=== PATIENT | female | born 1985 | race Two or more races ===

== ENCOUNTER 2025-03-28 09:26 | Inpatient (IN) | payer MEDICAID, OTHER ==
[~2025-03-28] VITALS: Ht 162.6 cm; Wt 83.3 kg
--- NOTE | 2025-03-28 10:02 | ED.PDOC ---
History of Present Illness HPI Comments 39-year-old female see the ER with primary care history of chronic headaches and a chief complaint of headache. Patient on having headache associated with facial swelling for a week and a half. Patient went to her PCP where they told her to go to for an MRI. Patient notes on not seeing a neurologist or ever referred to one. Patient states on taking ibuprofen and Tylenol for pain. Denies chills, fever, N/V/D, SOB, CP. No other associated symptoms, modifiers, recent injuries or sick contacts present at this time. 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 History Family History Family History: Reviewed,noncontributory to illness, Unknown Social History Smoker: Non-Smoker Alcohol: Denies ETOH Use Drugs: Denies Drug Use Lives In: Home Constitutional: denies: chills, diaphoresis, fatigue, fever, malaise, sweats, weakness, others EENTM: denies: blurred vision, double vision, ear bleeding, ear discharge, ear drainage, ear pain, ear ringing, eye pain, eye redness, hearing loss, mouth pain, mouth swelling, nasal discharge, nose bleeding, nose congestion, nose p ain, photophobia, tearing, throat pain, throat swelling, voice changes, others Respiratory: denies: cough, hemoptysis, orthopnea, SOB at rest, shortness of breath, SOB with excertion, stridor, wheezing, others Cardiovascular: denies: chest pain, dizzy spells, diaphoresis, Dyspnea on exertion, edema, irregular heart beat, left arm pain, lightheadedness, palpitations, PND, syncope, others Gastrointestinal: denies: abdomen distended, abdominal pain, blood streaked bowels, constipated, diarrhea, dysphagia, difficulty swallowing, hematemesis, melena, nausea, poor appetite, poor fluid intake, rectal bleeding, rectal pain, vomiting, others Genitourinary: denies: abnormal vagina bleeding, burning, dyspareunia, dysuria, flank pain, frequency, hematuria, incontinence, pain, , vagina discharge, urgency, others Neurological: reports: headache, others (Facial swelling); denies: dizziness, fainting, left sided numbness, left sided weakness, numbness, paresthesia, pre- existing deficit, right sided numbness, right sided weakness, seizure, speech problems, tingling, tremors, weakness Musculoskeletal: denies: back pain, gout, joint pain, joint swelling, muscle pain, muscle stiffness, neck pain, others Integumetry: denies: bruises, change in color, change in hair/nails, dryness, laceration, lesions, lumps, rash, wounds, others Allergic/Immunocompromised: denies: Difficulty Healing, Frequent Infections, Hives, Itching, others Hematologic/Lymphatic: denies: anemia, blood clots, easy bleeding, easy bruising, swollen glands, others Endocrine: denies: excessive hunger, excessive sweating, excessive thirst, excessive urination, flushing, intolerance to cold, intolerance to heat, unexplained weight gain, unexplained weight loss, others Psychiatric: denies: anxiety, bipolar disorder, depression, hopeless, panic disorder, schizophrenia, sleepless, suicidal, others All Other Systems: Reviewed and Negative Physical Exam General Appearance: No Apparent Distress, Normal HEENT: Normal ENT Inspection, Pharynx Normal, TMs Normal Neck: Full Range of Motion, Non-Tender, Normal, Normal Inspection Respiratory: Chest Non-Tender, Lungs Clear, No Accessory Muscle Use, No Respiratory Distress, Normal Breath Sounds Cardiovascular: No Edema, No JVD, No Murmur, No Gallop, Normal Peripheral Pulses, Regular Rate/Rhythm Breast Exam: Deferred Gastrointestinal: No Organomegaly, Non Tender, No Pulsatile Mass, Normal Bowel Sounds, Soft Genitalia: Deferred Pelvic: Deferred Rectal: Deferred Extremities: No calf tenderness, Normal capillary refill, Normal inspection, Normal range of motion, Non-tender, No pedal edema Musculoskeletal : Apperance: Normal Neurologic: Alert, stone sawyer II-XII nml as Tested, No Motor Deficits, Normal Affect, Normal Mood, No Sensory Deficits Cerebellar Function: Normal Reflexes: Normal Skin: Dry, Normal Color, Warm Lymphatic: No Adenopathy Was a procedure done? Was a procedure done?: No Differential Dx Considerations may include: Migraine X-Ray, Labs, Meds, VS Vital Signs Date Time Temp Pulse Resp B/P (MAP) Pulse Ox O2 Delivery O2 Flow Rate FiO2 03/28/25 10:27 78 19 96 Room Air 0 03/28/25 09:28 96.6 84 16 135/85 97 96.6 Lab Test 03/28/25 10:05 Range/Units White Blood Count 6.5 4.4-10.8 10^3/uL Red Blood Count 4.69 4.0-5.20 10^6/uL Hemoglobin 12.2 12.2-16.2 g/dL Hematocrit 37.1 36.0-46.0 % Mean Corpuscular Volume 79.2 L 80.0-100.0 fL Mean Corpuscular Hemoglobin 26.0 L 28.0-32.0 pg Mean Corpuscular Hemoglobin Concent 32.8 32.0-36.0 g/dL Red Cell Distribution Width 19.0 H 11.8-14.3 % Platelet Count 298 140-450 10^3/uL Mean Platelet Volume 8.8 6.9-10.8 fL Neutrophils (%) (Auto) 66.4 37.0-80.0 % Lymphocytes (%) (Auto) 22.4 10.0-50.0 % Monocytes (%) (Auto) 7.5 0.0-12.0 % Eosinophils (%) (Auto) 3.0 0.0-7.0 % Basophils (%) (Auto) 0.7 0.0-2.0 % Neutrophils # (Auto) 4.3 1.6-8.6 10 ^3/uL Lymphocytes # (Auto) 1.5 0.4-5.4 10 ^3/uL Monocytes # (Auto) 0.5 0-1.3 10 ^3/uL Eosinophils # (Auto) 0.2 0-0.8 10 ^3/uL Basophils # (Auto) 0 0-0.2 10 ^3/uL Nucleated Red Blood Cells 0.0 % Sodium Level 138 136-145 mmol/L Potassium Level 4.0 3.5-5.1 mmol/L Chloride Level 105 98-107 mmol/L Carbon Dioxide Level 25 20-31 mmol/L Anion Gap 8 5-15 Blood Urea Nitrogen 9 9-23 mg/dL Creatinine 0.68 0.550-1.02 mg/dL Glomerular Filtration Rate Calc 114 >90 mL/min BUN/Creatinine Ratio 13.2 10.0-20.0 Serum Glucose 87 74-106 mg/dL Calcium Level 9.5 8.7-10.4 mg/dL Current Medications Medications (Trade) Dose Ordered Sig/Esther Route Start Time Stop Time Status Last Admin Sodium Chloride 1,000 ml @ 1,000 mls/hr Q1H ONCE IV 03/28/25 09:45 03/28/25 10:44 DC 03/28/25 10:12 Ketorolac Tromethamine (Toradol Injection) 15 mg ONCE ONCE IV 03/28/25 09:45 03/28/25 09:47 DC 03/28/25 10:14 Metoclopramide HCl (Reglan Injection) 10 mg ONCE ONCE IV 03/28/25 09:45 03/28/25 09:47 DC 03/28/25 10:15 Time of 1ST Reevaluation: 10:30 Reevaluation 1ST: Unchanged Patient Education/Counseling: Diagnosis, Treatment, Prognosis Family Education/Counseling: No Family Present SEPSIS Sepsis Screen Date sepsis recognized/suspect: Mar 28, 2025 Time Sepsis recognized/suspect: 933 Recent Procedure: No (T) On Antibiotic Therapy: No Respiratory Rate >20: No Heart Rate >90: No Temp<36 C (96.8 F) or >38.3 C: No SBP <90 or MAP <65 mmHG: No New Acute Mental Status Change: No Is the patient on CPAP, BIPAP,: Yes Vital Signs Date Time Temp Pulse Resp B/P (MAP) Pulse Ox O2 Delivery O2 Flow Rate FiO2 03/28/25 10:27 78 19 96 Room Air 0 03/28/25 09:28 96.6 84 16 135/85 97 96.6 Laboratory Tests Test 03/28/25 10:05 White Blood Count 6.5 10^3/uL (4.4-10.8) Medications Medications Dose Ordered Sig/Esther Route Start Time Stop Time Status Last Admin Dose Admin Ketorolac Tromethamine 15 mg ONCE ONCE IV 03/28/25 09:45 03/28/25 09:47 DC 03/28/25 10:14 Metoclopramide HCl 10 mg ONCE ONCE IV 03/28/25 09:45 03/28/25 09:47 DC 03/28/25 10:15 Sodium Chloride 1,000 ml @ 1,000 mls/hr Q1H ONCE IV 03/28/25 09:45 03/28/25 10:44 DC 03/28/25 10:12 Departure 1 Departure Time of Disposition: 12:57 (Patient likely had a migraine. Patient is feeling better now. We will discharge patient home with outpatient follow up) Impression: Primary Impression: Migraine Qualified Codes: G43.719 - Chronic migraine without aura, intractable, without status migrainosus Disposition: ADMITTED INPATIENT Admit to: Med Surg Condition: Serious Referrals: RAMONA ELLIS MD Additional Instructions: You likely had a migraine. You received medications in the ER. You can take tylenol and motrin as needed for pain. You should stay well rested and well hydrated. It is important to follow up with your regular doctor within one week. If your symptoms worsen or you have any other concerns then please return to the ER. Discharged With: Self Critical Care Note Critical Care Time?: No Stability Stability form required: No I personally scribed for AGUSTIN JAY MD ([email or web address]) on 03/28/25 at 10:02. El ectronically submitted by You Galeano ([email or web address]). AGUSTIN JAY MD Mar 28, 2025 10:02
[2025-03-28] MEDS: SODIUM CHLORIDE 0.9% 1,000 ML IV ONE (10:12)
[2025-03-28] MEDS: KETOROLAC TROMETH 30 MG/ML 1ML VIAL IV ONE (10:14)
[2025-03-28] MEDS: METOCLOPRAMIDE HCL 5MG/ml INJ 2ml VIAL IV ONE (10:15)
[2025-03-28 10:30] LABS: Hematocrit 37.1 % (36.0-46.0); Hemoglobin 12.2 g/dL (12.2-16.2); Mean Corpuscular Hemoglobin 26.0 pg (28.0-32.0); Mean Corpuscular Volume 79.2 fL (80.0-100.0); Nucleated Red Blood Cells % 0.0 %
[2025-03-28 10:44] LABS: Chloride 105 mmol/L (98-107); Potassium 4.0 mmol/L (3.5-5.1); Sodium 138 mmol/L (136-145)
[2025-03-28 10:45] LABS: Anion Gap 8 (5-15); Calcium 9.5 mg/dL (8.7-10.4); Carbon Dioxide 25 mmol/L (20-31)
[2025-03-28 10:50] LABS: Glucose 87 mg/dL (74-106)
[2025-03-28 10:51] LABS: BUN/Creatinine Ratio 13.2 (10.0-20.0); Blood Urea Nitrogen 9 mg/dL (9-23)
--- NOTE | 2025-03-28 13:08 | ED.PDOC ---
Departure 1 Departure Time of Disposition: 13:07 (Patient reports that headache returned to you and worse. Patient likely with status migrainous. We will admit patient for further workup and expert consultation) Impression: Primary Impression: Migraine Qualified Codes: G43.711 - Chronic migraine without aura, intractable, with status migrainosus Disposition: ADMITTED INPATIENT Admit to: Med Surg Condition: Serious Referrals: RAMONA ELLIS MD Discharged With: Self AGUSTIN JYA MD Mar 28, 2025 13:08
--- NOTE | 2025-03-28 13:51 | DVH ---
CLINICAL HISTORY: intractable headaches TECHNIQUE: Helical scanning was performed of the head from the skull base to the vertex. Multiplanar reconstructions were performed. This exam was performed according to our departmental dose optimizat ion program. Up-to-date CT equipment and radiation dose reduction techniques are utilized as appropri ate. CTDI 52.4 DLP 925.6 COMPARISON: None FINDINGS: There is no evidence for acute intracranial hemorrhage, acute ischemic changes, mass, mass effect, or extra-axial fluid collection. There is no hydrocephalus or midline shift. There is no effacement of the cerebral sulci and basal subarachnoid cisterns. The anders-white matter differentiation is well ventura ntained. The imaged paranasal sinuses demonstrate minimal scattered mucoperiosteal thickening. IMPRESSION: NO ACUTE INTRACRANIAL ABNORMALITY SEEN.
[2025-03-28] MEDS ORDERED: KETOROLAC TROMETH 30 MG/ML 1ML VIAL IV PRN (15:45)
[2025-03-28] MEDS ORDERED: ONDANSETRON HCL 4 MG/2 ML VIAL IV PRN (15:45)
--- NOTE | 2025-03-28 16:03 | DVHDSRES ---
Discharge Summary Date of Admission Resident Creating Document: TANJA VALDES Mar 28, 2025 at 14:57 Labs/Diagnostic Data: Laboratory Results Test 03/28/25 10:05 White Blood Count 6.5 10^3/uL (4.4-10.8) Red Blood Count 4.69 10^6/uL (4.0-5.20) Hemoglobin 12.2 g/dL (12.2-16.2) Hematocrit 37.1 % (36.0-46.0) Mean Corpuscular Volume 79.2 fL (80.0-100.0) Mean Corpuscular Hemoglobin 26.0 pg (28.0-32.0) Mean Corpuscular Hemoglobin Concent 32.8 g/dL (32.0-36.0) Red Cell Distribution Width 19.0 % (11.8-14.3) Platelet Count 298 10^3/uL (140-450) Mean Platelet Volume 8.8 fL (6.9-10.8) Neutrophils (%) (Auto) 66.4 % (37.0-80.0) Lymphocytes (%) (Auto) 22.4 % (10.0-50.0) Monocytes (%) (Auto) 7.5 % (0.0-12.0) Eosinophils (%) (Auto) 3.0 % (0.0-7.0) Basophils (%) (Auto) 0.7 % (0.0-2.0) Neutrophils # (Auto) 4.3 10 ^3/uL (1.6-8.6) Lymphocytes # (Auto) 1.5 10 ^3/uL (0.4-5.4) Monocytes # (Auto) 0.5 10 ^3/uL (0-1.3) Eosinophils # (Auto) 0.2 10 ^3/uL (0-0.8) Basophils # (Auto) 0 10 ^3/uL (0-0.2) Nucleated Red Blood Cells 0.0 % Sodium Level 138 mmol/L (136-145) Potassium Level 4.0 mmol/L (3.5-5.1) Chloride Level 105 mmol/L (98-107) Carbon Dioxide Level 25 mmol/L (20-31) Anion Gap 8 (5-15) Blood Urea Nitrogen 9 mg/dL (9-23) Creatinine 0.68 mg/dL (0.550-1.02) Glomerular Filtration Rate Calc 114 mL/min (>90) BUN/Creatinine Ratio 13.2 (10.0-20.0) Serum Glucose 87 mg/dL (74-106) Calcium Level 9.5 mg/dL (8.7-10.4) Other Laboratory Tests 03/28/25 10:05 Discharge Statement: "Patient was advised to return to the ER or call 911 if any headaches, dizziness, shortness of breath, chest pain, abdominal pain, bleeding, fevers, or worsening of medical condition. Patient was counseled about treatment plan, medications, possible side effects, patientverbalized understanding. All questions were answered to the best of my ability. This discharge took greater then 30 minutes in planning, reviewing documentation, counseling the patient, and discussing with other team members." ASSESSMENT ASSESSMENT Assessment TANJA VALDES RESIDENT Mar 28, 2025 16:03
--- NOTE | 2025-03-28 16:44 | DVHHPRES ---
History of Present Illness Resident Creating Document: TANJA VALDES RESIDENT History of Present Illness Janneth Yi 39-year-old female with iron-deficiency anemia, vitamin-D deficiency presents to the ER with the complaints of severe headache for the last 1 or 2 weeks, which is disabling and preventing her from going to work. She reports having headache since childhood, the episodes of headache increased after her sections. The current episode started 1 week ago, the patient reports the headache to be persistent, global, compressing band like feature, she denies any blurry vision, the headache episodes are associated with vertigo and vomiting. She also reports having anxiety and depression, however she does not take any home medications. She uses marijuana ointment, which partially resolves the headache. She also reports having 4 tablets of ibuprofen every day, with minimal relief. Some days headaches are so severe that she wakes up from sleep. Her left eyes and nasal ala become swollen sometimes. She also reports having burning sensation during passing the stool. She denies any recent travel history, sick contacts or fever. She reports occasional left-sided chest pain, increases with breathing and walking. She also have burning sensation during urination. She denies any shortness of breath, abdominal pain or any other complaints today. 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 Regla Castillo Patient was seen and examined at bedside, the patient reports headache improved with IV ketorolac, which is 5/10 now. She denies any other complaints at this time. Review of Systems Allergies: Coded Allergies: NO KNOWN ALLERGIES (Unverified , 03/28/25) Medications Current Medications Medications Dose Ordered Sig/Esther Route Start Time Stop Time Status Last Admin Dose Admin Ondansetron HCl 4 mg Q6HPRN PRN IV 03/28/25 15:45 Ketorolac Tromethamine 15 mg Q6HPRN PRN IV 03/28/25 15:45 04/02/25 15:44 Acetaminophen 650 mg Q6HP PRN PO 03/28/25 15:45 Exam Vital Signs Vital Signs Date Time Temp Pulse Resp B/P (MAP) Pulse Ox O2 Delivery O2 Flow Rate FiO2 03/28/25 16:13 59 03/28/25 14:12 98.2 16 110/72 (85) 99 98.2 03/28/25 10:27 Room Air 0 Exam Pt is lying on bed General Appearance: Alert, Oriented X3, Cooperative, Mild distress HEENT: Left eye pain with movement, Atraumatic, Mucous membranes moist/pink Respiratory: Clear to auscultation, Normal air movement, No added sounds Cardiovascular: Regular rate, Normal S1, Normal S2, No murmurs Abdominal/ : Active bowel sounds, Soft, no distention, no tenderness Extremities: No edema, Normal pulses, No tenderness/swelling Skin: No Significant rash, except past surgical scars Neuro: Normal speech, sensorimotor deficits none Psych/Mental Status: Mental status NL, Mood NL Nurse was there as wellness program manager during examination Labs/Xrays Labs Test 03/28/25 10:05 Range/Units White Blood Count 6.5 4.4-10.8 10^3/uL Red Blood Count 4.69 4.0-5.20 10^6/uL Hemoglobin 12.2 12.2-16.2 g/dL Hematocrit 37.1 36.0-46.0 % Mean Corpuscular Volume 79.2 L 80.0-100.0 fL Mean Corpuscular Hemoglobin 26.0 L 28.0-32.0 pg Mean Corpuscular Hemoglobin Concent 32.8 32.0-36.0 g/dL Red Cell Distribution Width 19.0 H 11.8-14.3 % Platelet Count 298 140-450 10^3/uL Mean Platelet Volume 8.8 6.9-10.8 fL Neutrophils (%) (Auto) 66.4 37.0-80.0 % Lymphocytes (%) (Auto) 22.4 10.0-50.0 % Monocytes (%) (Auto) 7.5 0.0-12.0 % Eosinophils (%) (Auto) 3.0 0.0-7.0 % Basophils (%) (Auto) 0.7 0.0-2.0 % Neutrophils # (Auto) 4.3 1.6-8.6 10 ^3/uL Lymphocytes # (Auto) 1.5 0.4-5.4 10 ^3/uL Monocytes # (Auto) 0.5 0-1.3 10 ^3/uL Eosinophils # (Auto) 0.2 0-0.8 10 ^3/uL Basophils # (Auto) 0 0-0.2 10 ^3/uL Nucleated Red Blood Cells 0.0 % Sodium Level 138 136-145 mmol/L Potassium Level 4.0 3.5-5.1 mmol/L Chloride Level 105 98-107 mmol/L Carbon Dioxide Level 25 20-31 mmol/L Anion Gap 8 5-15 Blood Urea Nitrogen 9 9-23 mg/dL Creatinine 0.68 0.550-1.02 mg/dL Glomerular Filtration Rate Calc 114 >90 mL/min BUN/Creatinine Ratio 13.2 10.0-20.0 Serum Glucose 87 74-106 mg/dL Calcium Level 9.5 8.7-10.4 mg/dL Thyroid Stimulating Hormone (TSH) 2.68 0.55-4.78 uIU/mL SEPSIS Sepsis Screen Date sepsis recognized/suspect: Mar 28, 2025 Time Sepsis recognized/suspect: 933 Recent Procedure: No (T) On Antibiotic Therapy: No Respiratory Rate >20: No Heart Rate >90: No Temp<36 C (96.8 F) or >38.3 C: No SBP <90 or MAP <65 mmHG: No New Acute Mental Status Change: No Is the patient on CPAP, BIPAP,: Yes Physician Orders Head Without Contrast (03/28/25 13:06) Admit (03/28/25 14:57) Notify Md Of Changes From Base (03/28/25 14:57) Stat Ekg For Chest Pain (03/28/25 14:57) Basic Metabolic Panel (03/29/25 04:00) Complete Blood Count (03/29/25 04:00) Erythrocyte Sedimentation Rate (03/28/25 15:45) Troponin-I Hs (03/28/25 15:45) Vitamin B12 (03/28/25 15:45) Vitamin D, 25-Hydroxy (03/28/25 15:45) Urinalysis (03/28/25 15:45) Mechanical Soft Diet (03/28/25 Dinner) Chest Xray 1 View (03/28/25 15:45) Ondansetron Hcl (Zofran) (03/28/25 15:45) Drug Screen (03/28/25 15:45) C-Reactive Protein (03/28/25 15:45) Ketorolac Injection (Toradol Injection) (03/28/25 15:45) Acetaminophen Tablet (Tylenol Tablet) (03/28/25 15:45) Electrocardigram (03/28/25 16:18) Vital Signs Date Time Temp Pulse Resp B/P (MAP) Pulse Ox O2 Delivery O2 Flow Rate FiO2 03/28/25 16:13 59 03/28/25 14:12 98.2 63 16 110/72 (85) 99 98.2 03/28/25 10:27 78 19 96 Room Air 0 03/28/25 09:28 96.6 84 16 135/85 97 96.6 Laboratory Tests Test 03/28/25 10:05 White Blood Count 6.5 10^3/uL (4.4-10.8) Medications Medications Dose Ordered Sig/Esther Route Start Time Stop Time Status Last Admin Dose Admin Ketorolac Tromethamine 15 mg ONCE ONCE IV 03/28/25 09:45 03/28/25 09:47 DC 03/28/25 10:14 15 MG Metoclopramide HCl 10 mg ONCE ONCE IV 03/28/25 09:45 03/28/25 09:47 DC 03/28/25 10:15 10 MG Sodium Chloride 1,000 ml @ 1,000 mls/hr Q1H ONCE IV 03/28/25 09:45 03/28/25 10:44 DC 03/28/25 10:12 1,000 MLS/HR Assessment/Plan Assessment/Plan Severe Tension type or migraine headaches Dehydration due to vomiting IV fluid Metoclopramide Ondansetron IV ketorolac p.r.n. EKG: Normal Consider sumatriptan if severe pain. Iron-deficiency anemia, improved Continue iron tablets Ordered iron panels Vitamin-D deficiency Continue vitamin-D tablets Level ordered GI prophylaxis: Not indicated DVT prophylaxis: Not indicated, patient is ambulatory Diet: Regular Goals of care discussed with the patient for more than 27 minutes: Full code status Case discussed with Dr. Diaz , patient and RN Plan discussed with: Patient, Other (RN) My Orders Orders - LUCIO,TANJA RESIDENT Procedure Category Date Status Time Admit ADMIT 03/28/25 Transmitted 14:57 Notify Of Changes CHAD 03/28/25 In Process From Base 14:57 Stat Ekg For Chest CHAD 03/28/25 In Process Pain 14:57 Basic Metabolic Panel LAB 03/29/25 Verified 04:00 Complete Blood Count LAB 03/29/25 Verified 04:00 Erythrocyte LAB 03/28/25 In Process Sedimentation Rate 15:45 Troponin-I Hs LAB 03/28/25 Logged 15:45 Vitamin B12 LAB 03/28/25 In Process 15:45 Vitamin D, 25-Hydroxy LAB 03/28/25 In Process 15:45 Urinalysis LAB 03/28/25 Logged 15:45 Mechanical Soft Diet DIET 03/28/25 Transmitted Dinner Chest Xray 1 View XY 03/28/25 Taken 15:45 Ondansetron Hcl PHA 03/28/25 In Process (Zofran) 15:45 Drug Screen LAB 03/28/25 Logged 15:45 C-Reactive Protein LAB 03/28/25 In Process 15:45 Ketorolac Injection PHA 03/28/25 In Process (Toradol Injection) 15:45 Acetaminophen Tablet PHA 03/28/25 In Process (Tylenol Tablet) 15:45 Date of Service: Mar 28, 2025 Billing Provider: GAETANO DIAZ MD Common Visit Codes: 98213-[id number] INP/OBS CARE (HIGH) Secondary Visit Codes: 78512-LYICTAAN CARE PLAN 30 MINUTES TANJA VALDES RESIDENT Mar 28, 2025 16:44 GAETANO DIAZ MD Mar 31, 2025 00:44
[2025-03-28 17:46] VITALS: PULSE 69; RESP 16; O2SAT 100
[2025-03-28 18:10] VITALS: BP 131/81; PULSE 68; RESP 19; TEMP 97.7; O2SAT 100
[2025-03-28 18:47] LABS: Iron 142.0 ug/dL (50-170)
[2025-03-28 18:50] LABS: Total Iron Binding Capacity 360.0 ug/dL (250-425)
--- NOTE | 2025-03-28 19:00 | ECG ---
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
[2025-03-28] MEDS ORDERED: CHOL1TAB30 PO (19:06)
[2025-03-28] MEDS ORDERED: FERR325T20 PO (19:06)
--- NOTE | 2025-03-28 19:21 | DVH ---
CHEST RADIOGRAPH Indication: chest pain Technique: Single frontal view of the chest was obtained Comparison: None FINDINGS/IMPRESSION: The lungs are clear. The cardiomediastinal silhouette is unremarkable. No pleural effusion or pneumo thorax. No acute osseous abnormality.
[2025-03-28 20:00] VITALS: PULSE 75; RESP 18; O2SAT 99
[2025-03-28] MEDS: ACETAMINOPHEN 325 MG TAB PO PRN (20:48)
[2025-03-28 21:00] VITALS: BP 115/80; PULSE 77; RESP 19; TEMP 97.9; O2SAT 99
[2025-03-29 05:00] VITALS: BP 115/59; PULSE 94; RESP 20; TEMP 98; O2SAT 20
[2025-03-29 06:43] LABS: Hemoglobin 11.4 g/dL (12.2-16.2)
[2025-03-29 06:47] LABS: Hematocrit 34.1 % (36.0-46.0); Mean Corpuscular Hemoglobin 26.6 pg (28.0-32.0); Mean Corpuscular Volume 79.4 fL (80.0-100.0); Nucleated Red Blood Cells % 0.1 %
[2025-03-29 07:02] LABS: Anion Gap 12 (5-15); Calcium 9.0 mg/dL (8.7-10.4); Carbon Dioxide 21 mmol/L (20-31)
[2025-03-29 07:08] LABS: Glucose 87 mg/dL (74-106)
[2025-03-29 07:09] LABS: BUN/Creatinine Ratio 17.1 (10.0-20.0); Blood Urea Nitrogen 12 mg/dL (9-23)
[2025-03-29 07:12] LABS: Chloride 108 mmol/L (98-107); Potassium 4.4 mmol/L (3.5-5.1); Sodium 141 mmol/L (136-145)
[2025-03-29 08:00] VITALS: PULSE 92; RESP 19; O2SAT 97
[2025-03-29 09:08] VITALS: BP 117/74; PULSE 92; RESP 19; TEMP 98.3; O2SAT 97
[2025-03-29] MEDS: ERGOCALCIFEROL 50,000 UNIT(1.25MG) CAP PO SCH (12:20)
[2025-03-29 12:58] VITALS: BP 112/78; PULSE 76; RESP 18; TEMP 97.3; O2SAT 98
--- NOTE | 2025-03-29 15:11 | DVHDSRES ---
Discharge Summary Date of Admission Resident Creating Document: TANJA VALDES Mar 28, 2025 at 14:57 Date of Discharge: Mar 29, 2025 Labs/Diagnostic Data: Laboratory Results Test 03/29/25 05:26 03/28/25 10:05 White Blood Count 6.3 10^3/uL (4.4-10.8) Red Blood Count 4.30 10^6/uL (4.0-5.20) Hemoglobin 11.4 g/dL (12.2-16.2) Hematocrit 34.1 % (36.0-46.0) Mean Corpuscular Volume 79.4 fL (80.0-100.0) Mean Corpuscular Hemoglobin 26.6 pg (28.0-32.0) Mean Corpuscular Hemoglobin Concent 33.4 g/dL (32.0-36.0) Red Cell Distribution Width 18.5 % (11.8-14.3) Platelet Count 275 10^3/uL (140-450) Mean Platelet Volume 9.3 fL (6.9-10.8) Neutrophils (%) (Auto) 67.8 % (37.0-80.0) Lymphocytes (%) (Auto) 22.0 % (10.0-50.0) Monocytes (%) (Auto) 7.0 % (0.0-12.0) Eosinophils (%) (Auto) 2.6 % (0.0-7.0) Basophils (%) (Auto) 0.6 % (0.0-2.0) Neutrophils # (Auto) 4.2 10 ^3/uL (1.6-8.6) Lymphocytes # (Auto) 1.4 10 ^3/uL (0.4-5.4) Monocytes # (Auto) 0.4 10 ^3/uL (0-1.3) Eosinophils # (Auto) 0.2 10 ^3/uL (0-0.8) Basophils # (Auto) 0 10 ^3/uL (0-0.2) Nucleated Red Blood Cells 0.1 % Sodium Level 141 mmol/L (136-145) Potassium Level 4.4 mmol/L (3.5-5.1) Chloride Level 108 mmol/L (98-107) Carbon Dioxide Level 21 mmol/L (20-31) Anion Gap 12 (5-15) Blood Urea Nitrogen 12 mg/dL (9-23) Creatinine 0.70 mg/dL (0.550-1.02) Glomerular Filtration Rate Calc 113 mL/min (>90) BUN/Creatinine Ratio 17.1 (10.0-20.0) Serum Glucose 87 mg/dL (74-106) Calcium Level 9.0 mg/dL (8.7-10.4) Erythrocyte Sedimentation Rate 10 mm/hr (0-20) Iron Level 142 ug/dL (50-170) Total Iron Binding Capacity 360 ug/dL (250-425) Percent Iron Saturation 39.4 % (15-50) Troponin I High Sensitivity < 3 ng/L (</=34) C-Reactive Protein High Sensitivity 0.15 mg/dL (<1.0) Vitamin B12 Level 471 pg/mL (211-911) Vitamin D 25-Hydroxy 22.8 ng/mL (30.0-100) Thyroid Stimulating Hormone (TSH) 2.68 uIU/mL (0.55-4.78) Other Laboratory Tests 03/29/25 05:26 Brief Hx & Hospital Course: Janneth Yi 39-year-old female with iron-deficiency anemia, vitamin-D deficiency presents to the ER with the complaints of severe headache for the last 1 or 2 weeks, which is disabling and preventing her from going to work. She reports having headache since childhood, the episodes of headache increased after her sections. The current episode started 1 week ago, the patient reports the headache to be persistent, global, compressing band like feature, she denies any blurry vision, the headache episodes are associated with vertigo and vomiting. She also reports having anxiety and depression, however she does not take any home medications. She uses marijuana ointment, which partially resolves the headache. She also reports having 4 tablets of ibuprofen every day, with minimal relief. Some days headaches are so severe that she wakes up from sleep. Her left eyes and nasal ala become swollen sometimes. She also reports having burning sensation during passing the stool. She denies any recent travel history, sick contacts or fever. She reports occasional left-sided chest pain, increases with breathing and walking. She also have burning sensation during urination. She denies any shortness of breath, abdominal pain or any other complaints today. 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 Regla Castillo A head CT was performed which was negative. EKG did not reveal any ischemic changes and chest x-ray was negative. The patient was treated with IV ketorolac for headache, metoclopramide and ondansetron was given for control of nausea and vomiting. Sumatriptan 1 dose was given in the morning which partially relieved her symptoms. The patient reports her headache improved with all the treatments. The patient was advised to take migraine prophylaxis propranolol to control her pain, she was advised to meet her PCP and get referral for a neurologist for further evaluation. Patient was advised to take iron tablets and vitamin-D regularly. The patient was tolerating food, her symptoms improved and she verbalized understanding of the discharge and treatment plan. 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 Medications: Migraine prophylaxis propranolol. As per EMR Scheduled Ergocalciferol (Vitamin D 73656 Unit), 50,000 UNIT PO QWEEKLY Propranolol Hcl (Inderal La), 60 MG PO DAILY Sumatriptan Base (Sumatriptan), 5 MG NA UD Discontinued Medications Cholecalciferol (Gnp Vitamin D), 1 TAB PO DAILY, (Reported) Ferrous Sulfate (Ferosul), PO, (Reported) Discharge Statement: "Patient was advised to return to the ER or call 911 if any headaches, dizziness, shortness of breath, chest pain, abdominal pain, bleeding, fevers, or worsening of medical condition. Patient was counseled about treatment plan, medications, possible side effects, patientverbalized understanding. All questions were answered to the best of my ability. This discharge took greater then 30 minutes in planning, reviewing documentation, counseling the patient, and discussing with other team members." ASSESSMENT ASSESSMENT Assessment Migraine headaches Date of Service: Mar 29, 2025 Billing Provider: GAETANO INFANTE MD Common Visit Codes: 92776-IIR/OBS DISCH DAY >30min LUCIOTANJA RESIDENT Mar 29, 2025 15:11 GAETANO INFANTE MD Mar 31, 2025 00:45
[2025-03-29] MEDS ORDERED: PROP60CA34 PO (15:44)
[2025-03-29] MEDS ORDERED: [UNRECOGNIZED DRUG - CODE] (15:44)
[2025-03-29] MEDS ORDERED: ERGO1CAP23 PO (15:45)
[2025-03-30 10:51] LABS: Hepatitis B Surface Antigen Negative (Negative); Hepatitis C Antibody Negative (Negative)
== END 2025-03-29 17:35 | disposition home or self-care (01) | DRG 54 ==
LOC: ER 09:26 → OVERFLOW 14:57 → WEST WING 18:00
PROVIDERS: ADMIT Internal Medicine Geriatric Medicine; ATTEND Emergency Medicine
DX: G43.909 Migraine, unspecified, not intractable, without status migrainosus (principal); D50.9 Iron deficiency anemia, unspecified; E86.0 Dehydration; E55.9 Vitamin D deficiency, unspecified
CPT/HCPCS: 36415; 70450; 71045; 80048; 82306; 82607; 83540; 83550; 84443; 84484; 85025; 85652; 86141; 86803; 87340; 93005; 96361; 96374; 96375; G0378; J1885